=== PATIENT | male | born 1975 | race Caucasian/White ===

== ENCOUNTER 2020-03-13 13:40 | Emergency (ER) | payer SELFPAY ==
--- NOTE | 2020-03-13 14:02 | EDM.PDOC ---
ED HPI GENERAL MEDICAL PROBLEM - General Chief Complaint: Upper Extremity Injury/Pain Stated Complaint: SMASHED RIGHT MIDDLE FINGER Time Seen by Provider: 03/13/20 14:00 Source of Information: Reports: Patient History Limitations: Reports: No Limitations - History of Present Illness INITIAL COMMENTS - FREE TEXT/NARRATIVE: 44 yo male here with a R long finger tip injury after getting it caught between 2 large rocks. Thinks his tetanus is not UTD, but is declining the option to get a booster. 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 nail intact. Lacerations present. ) Neurological: Alert, Oriented, CN II-XII Intact, Normal Cognition Psychiatric: Normal Affect, Normal Mood Skin Exam: Warm, Dry, Normal Color, No Rash, Wound/Incision (irregular lac's of the distal R long finger. ) ED TRAUMA EXTREMITY PROCEDURES - Laceration/Wound Repair Right Distal Digit - 3rd (Middle) Lac/Wound Length In cm: 3 Appearance: Irregular, Mildly Contaminated Distal NVT: No Tendon Injury Local Anesthesia - Lidocaine (Xylocaine): 2% Plain Local Anesthetic Volume: Other (8 ml) Skin Prep: Saline Saline Irrigation (cc's): 80 Exploration/Debridement/Repair: Wound Explored Closed With: Sutures Suture Size: 5-0 # of Sutures: 13 Suture Type: Prolene, Simple, Mattress Drain Placement: No Sterile Dressing Applied: Nurse Tetanus Status Addressed: Yes Complications: No Course - Vital Signs Last Recorded V/S: Last Vital Signs Temp 36.3 C 03/13/20 13:53 Pulse 66 07/22/20 13:53 Resp 12 03/13/20 13:53 BP 125/68 03/13/20 13:53 Pulse Ox 100 03/13/20 13:53 - Orders/Labs/Meds Orders: Active Orders 24 hr Category Date Time Status Fingers Third Digit Rt F7 [CR] Stat Exams 03/13/20 13:41 Ordered - Radiology Interpretation Free Text/Narrative:: R middle finger X-ray-tuft fx Departure - Departure Time of Disposition: 15:00 Disposition: Home, Self-Care 01 Condition: Fair Clinical Impression: Open fracture of tuft of distal phalanx of finger - Discharge Information *PRESCRIPTION DRUG MONITORING PROGRAM REVIEWED*: Not Applicable *COPY OF PRESCRIPTION DRUG MONITORING REPORT IN PATIENT ROGER: Not Applicable Referrals: Deniz Foster MD [Primary Care Provider] - Forms: ED Department Discharge Additional Instructions: Take cephalexin every 8 hrs until gone to prevent infection of your bone. Take ibuprofen 600 mg every 6 hrs with food for pain relief. Add either acetaminophen OR Industry for added relief. Elevate your wound to reduce pain and bleeding. Keep wound clean for at least 3 days. Recheck for signs of infection. Stitches out in 10 days. Sepsis Event Note (ED) - Focused Exam Vital Signs: Vital Signs Temp Pulse Resp BP Pulse Ox 03/13/20 13:53 36.3 C 66 12 125/68 100 - My Orders Last 24 Hours: My Active Orders 03/13/20 13:41 Fingers Third Digit Rt F7 [CR] Stat - Assessment/Plan Last 24 Hours: My Active Orders 03/13/20 13:41 Fingers Third Digit Rt F7 [CR] Stat
[2020-03-13] MEDS ORDERED: Lidocaine 2% 20 ML MDV NERVRT ONE (14:05)
[2020-03-13] MEDS ORDERED: Bacitracin Oint 1 GM U/D Packet TOP ONE (14:06)
--- NOTE | 2020-03-13 14:15 | CR ---
Fingers Third Digit Rt F7 CLINICAL HISTORY: Trauma FINDINGS: There is a tuft fracture of the third distal phalanx. There is laceration. IMPRESSION: Tuft fracture
== END 2020-03-13 15:15 | disposition home or self-care (01) ==
LOC: JP.ED 13:40
DX: S62.632B Displaced fracture of distal phalanx of right middle finger, initial encounter for open fracture (principal); W23.0XXA Caught, crushed, jammed, or pinched between moving objects, initial encounter
CPT/HCPCS: 12002; 73140; 99283; J2001; 12001; 99282